=== PATIENT | male | born 1995 | race Caucasian/White ===

== ENCOUNTER 2018-08-17 09:35 | Emergency (ER) | payer OTHER ==
[2018-08-17] MEDS ORDERED: KETOROLAC 30 MG/ML INJ ONE (10:06)
[2018-08-17] MEDS ORDERED: CYCLOBENZAPRINE 10 MG TAB ONE (10:06)
--- NOTE | 2018-08-17 10:57 | ER ---
Nurse's Notes [facility] Name: Ajay Dow Age: 23 yrs Sex: Male : 1995 Arrival Date: 08/17/2018 Time: 09:39 Bed 18 Private MD: Diagnosis: Low back pain Presentation: 08/17 09:48 Presenting complaint: Patient states: lower back pain, right above the buttocks. ch started around 1700after moving furniture, then I played basket ball around 1830 and it got much worse. today it is worse then yesterday. pain is like a band in my very lower lower back. Transition of care: patient was not received from another setting of care. Onset of symptoms was August 16, 2018 at 17:00. Risk Assessment: Do you want to hurt yourself or someone else? Patient reports no desire to harm self or others. Initial Sepsis Screen: Does the patient meet any 2 criteria? No. Patient's initial sepsis screen is negative. Does the patient have a suspected source of infection? No. Patient's initial sepsis screen is negative. Care prior to arrival: last night had two muscle relaxers and ibuprofen. 09:48 Method Of Arrival: Ambulatory 09:48 Acuity: VILMA 4 Triage Assessment: 09:49 General: Appears uncomfortable, Behavior is cooperative, appropriate for age. Pain: Complains of pain in low back area, sacrum, coccyx, left lower back and right lower back Pain currently is 10 out of 10 on a pain scale. Neuro: No deficits noted. Musculoskeletal: Capillary refill < 3 seconds, in bilateral fingers. Range of motion: limited in back, pain with flexion and extension. Historical: - Allergies: 09:49 No Known Allergies; - Home Meds: 09:49 None [Active]; - PMHx: 09:49 None; - PSHx: 09:49 None; - Immunization history:: Adult Immunizations up to date, Flu vaccine is not up to date. - Social history:: Smoking status: Patient/guardian denies using tobacco. - Ebola Screening: : Patient negative for fever greater than or equal to 101.5 degrees Fahrenheit, and additional compatible Ebola Virus Disease symptoms Patient denies exposure to infectious person Patient denies travel to an Ebola-affected area in the 21 days before illness onset No symptoms or risks identified at this time. Screenin:51 Abuse screen: Denies threats or abuse. Denies injuries from another. Nutritional ch screening: No deficits noted. Tuberculosis screening: No symptoms or risk factors identified. Fall Risk None identified. Assessment: 09:45 General: Appears uncomfortable, Behavior is calm, cooperative. Pain: Complains of pain rb1 in low back area Pain currently is 7 out of 10 on a pain scale. Pain began 1 day ago. Neuro: Level of Consciousness is awake, alert, obeys commands, Oriented to person, place, time, situation. Cardiovascular: Capillary refill < 3 seconds is brisk in bilateral fingers. Respiratory: Airway is patent Respiratory effort is even, unlabored, Respiratory pattern is regular, symmetrical. GI: No signs and/or symptoms were reported involving the gastrointestinal system. : No signs and/or symptoms were reported regarding the genitourinary system. Derm: Skin is dry, Skin is normal, Skin temperature is warm. Musculoskeletal: Range of motion: intact in all extremities. 10:30 Reassessment: Patient appears in no apparent distress at this time. Patient and/or rb1 family updated on plan of care and expected duration. Pain level reassessed. Patient is alert, oriented x 3, equal unlabored respirations, skin warm/dry/pink. 11:16 Reassessment: Patient appears in no apparent distress at this time. Patient and/or ph family updated on plan of care and expected duration. Pain level reassessed. Patient is alert, oriented x 3, equal unlabored respirations, skin warm/dry/pink. Pt d/c home w/ SO. Vital Signs: 09:49 BP 135 / 95; Pulse 72; Resp 15; Temp 98.1; Pulse Ox 99% ; Weight 120.2 kg; Height 6 ft. ch 3 in. (190.50 cm); Pain 10/10; 10:28 BP 124 / 63; Pulse 55; Resp 16; Pulse Ox 99% on R/A; rb1 11:17 BP 126 / 63; Pulse 57; Resp 19; Pulse Ox 99% on R/A; rb1 09:49 Body Mass Index 33.12 (120.20 kg, 190.50 cm) ED Course: 09:39 Patient arrived in ED. as 09:46 Thad De La Garza PA is PHCP. cp 09:46 Bo Lilly MD is Attending Physician. cp 09:49 Triage completed. 09:49 Arm band placed on left wrist. Patient placed in an exam room, pt states he hurts less ch standing than sitting. pt is standing in room next to stretcher. 09:51 Teodora Hill, RN is Primary Nurse. rb1 09:51 Patient has correct armband on for positive identification. Bed in low position. Call light in reach. Adult w/ patient. 11:17 No provider procedures requiring assistance completed. Patient did not have IV access ph during this emergency room visit. Administered Medications: 10:05 Drug: TORadol 60 mg Route: IM; Site: right gluteus; rb1 10:30 Follow up: Response: No adverse reaction; Pain is decreased rb1 10:05 Drug: Flexeril 10 mg Route: PO; rb1 10:30 Follow up: Response: No adverse reaction; Pain is decreased rb1 Outcome: 10:56 Discharge ordered by MD. cp 11:17 Discharged to home ambulatory, with significant other. ph 11:17 Condition: good 11:17 Discharge instructions given to patient, Instructed on discharge instructions, follow up and referral plans. medication usage, Demonstrated understanding of instructions, follow-up care, medications, Prescriptions given X 2. 11:18 Patient left the ED. ph Signatures: Aleta Lucas, MARCOS RN Zoey Nieves Patricia, RN RN ph Thad De La Garza PA PA cp Teodora Hill, RN RN rb1
--- NOTE | 2018-08-17 10:57 | EDPHYS ---
Physician Documentation [facility] Name: Ajay Dow Age: 23 yrs Sex: Male : 1995 Arrival Date: 08/17/2018 Time: 09:39 Bed 18 Private MD: ED Physician Bo Lilly HPI: 08/17 09:57 This 23 yrs old Male presents to ER via Ambulatory with complaints of Back cp Pain. 09:57 The patient presents with pain that is acute. The symptoms are located in the low back. cp Onset: The symptoms/episode began/occurred yesterday, and became worse this morning. The pain does not radiate. Associated signs and symptoms: Pertinent negatives: abdominal pain, constipation, dysuria, fever, incontinence, numbness, urinary retention, weakness. The problem was sustained reports pain started yesterday after moving furniture and seemed to worsen after playing basketball. pain worse this morning. denies trauma. 09:57 Severity of symptoms: in the emergency department the symptoms are unchanged, despite cp home interventions. Historical: - Allergies: 09:49 No Known Allergies; ch - Home Meds: 09:49 None [Active]; ch - PMHx: 09:49 None; ch - PSHx: 09:49 None; ch - Immunization history:: Adult Immunizations up to date, Flu vaccine is not up to date. - Social history:: Smoking status: Patient/guardian denies using tobacco. - Ebola Screening: : Patient negative for fever greater than or equal to 101.5 degrees Fahrenheit, and additional compatible Ebola Virus Disease symptoms Patient denies exposure to infectious person Patient denies travel to an Ebola-affected area in the 21 days before illness onset No symptoms or risks identified at this time. ROS: 10:03 Constitutional: Negative for body aches, chills, fever, poor PO intake. cp 10:03 Eyes: Negative for injury, pain, redness, and discharge. cp 10:03 ENT: Negative for drainage from ear(s), ear pain, sore throat, difficulty swallowing, difficulty handling secretions. 10:03 Neck: Negative for pain with movement, pain at rest, stiffness, tenderness. 10:03 Cardiovascular: Negative for chest pain, edema, palpitations. 10:03 Respiratory: Negative for cough, shortness of breath, wheezing. 10:03 Abdomen/GI: Negative for abdominal pain, nausea, vomiting, and diarrhea, constipation, black/tarry stool, rectal bleeding, bowel incontinence. 10:03 Back: Positive for pain at rest, pain with movement, of the low back area. 10:03 : Negative for urinary symptoms, flank pain, difficulty urinating, bladder incontinence, testicular pain 10:03 MS/extremity: Negative for injury or acute deformity, decreased range of motion, paresthesias, swelling, tenderness. 10:03 Skin: Negative for cellulitis, rash. 10:03 Neuro: Negative for altered mental status, headache, numbness, tingling, weakness. 10:03 All other systems are negative. Exam: 10:10 Constitutional: The patient appears in no acute distress, alert, awake, non-toxic, well cp developed, well nourished. 10:10 Head/Face: Normocephalic, atraumatic. cp 10:10 Eyes: Periorbital structures: appear normal, Conjunctiva: normal, no exudate, no injection, Lids and lashes: appear normal, bilaterally. 10:10 ENT: External ear(s): are unremarkable, Nose: is normal, Mouth: Lips: moist, Oral mucosa: moist, Posterior pharynx: is normal, airway is patent. 10:10 Neck: ROM/movement: is normal, is supple, without pain, no range of motions limitations, no nuchal rigidity. 10:10 Chest/axilla: Inspection: normal. 10:10 Cardiovascular: Rate: bradycardic, Rhythm: regular. 10:10 Respiratory: the patient does not display signs of respiratory distress, Respirations: normal, no use of accessory muscles, no retractions, no splinting, no tachypnea. 10:10 Abdomen/GI: Exam negative for discomfort, distension, guarding, Inspection: abdomen appears normal. 10:10 Back: pain, that is moderate, of the low back area. 10:10 Skin: cellulitis, is not appreciated, no rash present. 10:10 Neuro: Orientation: to person, place \T\ time. Mentation: lucid, able to follow commands, Motor: moves all fours, strength is normal, Sensation: no obvious gross deficits, Gait: is steady, Deep tendon reflexes are 2+ (normal) in the right patellar, right Achilles, left patellar and left Achilles. Vital Signs: 09:49 BP 135 / 95; Pulse 72; Resp 15; Temp 98.1; Pulse Ox 99% ; Weight 120.2 kg; Height 6 ft. ch 3 in. (190.50 cm); Pain 1010; 10:28 BP 124 / 63; Pulse 55; Resp 16; Pulse Ox 99% on R/A; rb1 11:17 BP 126 / 63; Pulse 57; Resp 19; Pulse Ox 99% on R/A; rb1 09:49 Body Mass Index 33.12 (120.20 kg, 190.50 cm) MDM: 09:46 Patient medically screened. cp 10:00 Differential diagnosis: Cholelithiasis Pyelonephritis ruptured disc, spinal injury, cp Ureterolithiasis sciatica, lumbar strain, cauda equina, spinal stenosis. 10:55 Data reviewed: vital signs, nurses notes, lab test result(s). cp 10:55 Counseling: I had a detailed discussion with the patient and/or guardian regarding: the cp historical points, exam findings, and any diagnostic results supporting the discharge/admit diagnosis, lab results, the need for outpatient follow up, a family practitioner, to return to the emergency department if symptoms worsen or persist or if there are any questions or concerns that arise at home. Response to treatment: the patient's symptoms have markedly improved after treatment, and as a result, I will discharge patient. Administered Medications: 10:05 Drug: TORadol 60 mg Route: IM; Site: right gluteus; rb1 10:30 Follow up: Response: No adverse reaction; Pain is decreased rb1 10:05 Drug: Flexeril 10 mg Route: PO; rb1 10:30 Follow up: Response: No adverse reaction; Pain is decreased rb1 Disposition: 16:09 Co-signature as Attending Physician, Bo Lilly MD. rn Disposition: 08/17/18 10:56 Discharged to Home. Impression: Low back pain. - Condition is Stable. - Discharge Instructions: Back Pain, Adult, Back Injury Prevention, [id number], Back Exercises, [id number]. - Prescriptions for Cyclobenzaprine 10 mg Oral Tablet - take 1 tablet by ORAL route every 8 hours As needed no driving while taking medication; 20 tablet. Diclofenac Sodium 75 mg Oral Tablet, Delayed Release (E.C.) - take 1 tablet by ORAL route 2 times per day; 20 tablet. - Work release form, Medication Reconciliation Form, Thank You Letter, Antibiotic Education, Prescription Opioid Use form. - Follow up: Private Physician; When: 2 - 3 days; Reason: Recheck today's complaints. - Problem is new. - Symptoms have improved. Signatures: Aleta Lucas RN RN Bo Lilly MD MD rn Hall, Patricia, RN RN ph Holli, CELESTINA Oneil cp Teodora Hill RN RN [facility] Corrections: (The following items were deleted from the chart) 11:17 10:28 Urine Dipstick-Ancillary ordered. cp ph 11:18 10:56 08/17/2018 10:56 Discharged to Home. Impression: Low back pain. Condition is ph Stable. Forms are Medication Reconciliation Form, Thank You Letter, Antibiotic Education, Prescription Opioid Use. Follow up: Private Physician; When: 2 - 3 days; Reason: Recheck today's complaints. Problem is new. Symptoms have improved. cp
== END 2018-08-17 11:18 | disposition home or self-care (01) ==
LOC: ER 09:35
DX: M54.5 Low back pain (principal)
CPT/HCPCS: 96372; 99283